=== PATIENT | female | born 1945 | race Caucasian/White ===

== ENCOUNTER 2017-03-31 13:24 | Inpatient (IN) | payer OTHER ==
--- NOTE | ~2017-03-31 | CN ---
Consultation Report [facility] [address] [place]. [address] NAME: GINNY SALINAS : 45 STATUS : ADM IN [facility]#: [id number] AGE: 71 ADM/REG DATE : 03/31/17 MR#: [id number] REPORT SERV DATE: 04/03/17 DICTATED BY: JENNY DEWITT DATE: 04/03/17 REPORT STATUS : Draft TRANSCRIBED BY: MODL DATE: 04/03/17 INFECTIOUS DISEASE CONSULT DATE OF CONSULTATION: 04/01/2017 REASON FOR REFERRAL: Evaluation and treatment of unexplained fever. HISTORY OF PRESENT ILLNESS: The patient is a 71-year-old female with a past medical history of hypertension, degenerative joint disease, diabetes, osteoarthritis, was generally doing well until about a week prior to her 03/31/2017 admission when she developed a headache described in the occiput of her head that began to radiate down into her neck and then her upper back and shoulders. She began to feel worse and worse, but had fevers and shaking chills and soaking sweats. She came in on 03/31/2017, was not on antibiotics at that time. Blood cultures were taken, and she was started empirically on vancomycin and Zosyn. A lumbar puncture was performed because of the location of the pain and showed 4 white cells and a protein of 48, but otherwise normal and cultures of that were negative. Her blood cultures remained negative. Imaging of her lungs has shown evidence of pneumonia, but she had no cough or shortness of breath. No dysuria. No nausea, vomiting, diarrhea, or abdominal cramping. No skin lesions or rashes. She lives in the [facility], has not traveled, works out in the garden, but has not in any sort of brush or trees or forests and has seen no tics, has no animals, essentially no unusual environmental exposures. She has family members who do not live with her but are in the vicinity, and none of them have been ill with any sort of similar symptoms. PAST MEDICAL HISTORY: Otherwise, unremarkable. MEDICATIONS: As mentioned, started on vancomycin and Zosyn. ALLERGIES: NO KNOWN ANTIMICROBIAL ALLERGIES. SOCIAL HISTORY: She is . Nonsmoker. No history of alcohol or substance abuse. FAMILY HISTORY: Noncontributory. PHYSICAL EXAMINATION: GENERAL: Ill-appearing elderly female, in no severe distress. Alert and oriented x3. VITAL SIGNS: Temperature had been as high as 102, but was 99.9 at the time of the consult. HEENT: Her sclerae are clear. She has no oropharyngeal lesions. NECK: Somewhat stiff. There is some tenderness posteriorly, but nothing on the skin. LUNGS: Clear. HEART: Regular rate and rhythm. ABDOMEN: Soft, nontender. Positive bowel sounds. EXTREMITIES: Without clubbing, cyanosis, or edema. No swollen, red, or hot joints. No Consultation Report [place] [id number] [facility] [place]. [address] NAME: GINNY SALINAS : 45 STATUS : ADM IN [facility]#: [id number] AGE: 71 ADM/REG DATE : 03/31/17 MR#: [id number] REPORT SERV DATE: 04/03/17 DICTATED BY: JENNY DEWITT DATE: 04/03/17 REPORT STATUS : Draft TRANSCRIBED BY: TERRY DATE: 04/03/17 skin lesions or rashes. LABORATORY DATA: White blood cell count 9.6, hematocrit 29.9, platelets 207, unremarkable differential. Sedimentation rate 26. BUN and creatinine 22 and 1.08. Liver function tests within normal limits. Urinalysis unremarkable. IMPRESSION: Febrile illness with a negative initial workup including a lumbar puncture. One concern would be osteomyelitis or diskitis of the cervical or thoracic spine. Other than that, her symptoms now reported do not strongly suggest any particular diagnosis. A tickborne illness certainly could cause this, but she has passed the point she should have had a rash with [place] spotted fever, and she has none of the characteristic lab abnormalities one would see with Ehrlichiosis. I do not feel there is Lyme disease in this area so, I would not consider that in the differential. RECOMMENDATIONS: 1. She seemed to be somewhat improved in the first 36 hours on empiric antibiotics, so we will continue those. 2. Imaging of her neck and back with MRI. 3. We will follow the patient closely with you. I appreciate very much your consulting on this patient. TONY Jenny Dewitt M.D. / [id number] CC: Sherlyn Corado MD
--- NOTE | ~2017-03-31 | CN ---
Consultation Report [facility] [address] [place]. [address] NAME: GINNY SALINAS : 45 STATUS : ADM IN PAT#: [id number] AGE: 71 ADM/REG DATE : 03/31/17 MR#: [id number] REPORT SERV DATE: 04/01/17 DICTATED BY: DATE: REPORT STATUS : Draft TRANSCRIBED BY: MODL DATE: 04/01/17 NEUROLOGY CONSULTATION DATE OF CONSULTATION: 04/01/2017 REASON FOR CONSULT: Headache, neck pain, and fever. HISTORY OF PRESENT ILLNESS: This is a 71-year-old female who presented to [facility] on 03/31/2017 secondary to persistent fever as well as headache and pain. The patient reports the pain was mostly localized in the base of the skull and cervical area with the pain reported to be constant. No aggravating factor was otherwise noted, relieved by morphine. The patient otherwise denies any focal weakness and denies any focal numbness. Denies gait abnormalities, and denies any bowel or bladder difficulties. The patient's symptoms have been ongoing for a week without significant improvement, appear to be mildly worse over the past two to three days, where the patient and family reports the patient has had a fever for the past two days, especially also noted to be dizzy and was lightheaded. The patient in addition also reports for the past two to three days, the patient has had dizziness described as lightheadedness when standing up, where the patient denies any previous similar symptoms. The patient denies any diarrhea, nausea, or vomiting, and denies any chest pain or shortness of breath prior to coming to the hospital. Denies any rash prior to hospital admission. Denies any sick contacts and denies any recent travel, and denies any insect or mosquito bite prior to hospital admission. The patient denies similar symptoms in the past. No loss of consciousness episode was otherwise noted. No dysarthria or confusion was reported by family members or the patient. The patient denies any recent changes in medications at the time of evaluation. PAST MEDICAL HISTORY: Significant for hypertension, degenerative joint disease, osteoarthritis, and type 2 diabetes. SOCIAL HISTORY: Denies tobacco, alcohol, or recreational drug usage. ALLERGIES: THE PATIENT DENIES ANY KNOWN DRUG ALLERGIES. FAMILY HISTORY: Significant for diabetes and osteoarthritis. REVIEW OF SYSTEMS: Negative, except for those mentioned in the HPI. MEDICATIONS: The patient's home medications consist of amlodipine, aspirin, atenolol, [place], Advil, and metformin. PHYSICAL EXAMINATION: VITAL SIGNS: Overnight, the patient was noted to have vital signs with T-max of 97.6, heart rate of 58 to 78, respirations of 16 to 20, and blood pressure of 97 to 112 over 49 to 53. Consultation Report [address] [place]. [address] NAME: GINNY SALINAS : 45 STATUS : ADM IN [facility]#: [id number] AGE: 71 ADM/REG DATE : 03/31/17 MR#: [id number] REPORT SERV DATE: 04/01/17 DICTATED BY: DATE: REPORT STATUS : Draft TRANSCRIBED BY: TERRY DATE: 04/01/17 Of note, the patient was noted to have a fever upon ER presentation with the patient's T-max of 102.3. GENERAL: The patient was well developed, well nourished, in no acute distress. CARDIOVASCULAR: Regular rate and rhythm. No carotid bruits were otherwise auscultated. PULMONARY: Clear to auscultation bilaterally. NEUROLOGICAL: Generally, the patient is alert and oriented to person, place, year, and month. Follows simple and two-step commands. No dysarthria. No aphasia. Intact registration and recall. Cranial nerves 2 through 12. Pupils equal, round, and reactive to light. Extraocular eye movement was noted to be intact with intact peripheral vision. Symmetrical facial expression and sensation. Midline tongue. Normal palatal movement. Mild decreased hearing in bilateral ears. 5/5 bilateral upper and lower extremity strength with normal muscle, bulk, and tone. Symmetrical sensation bilaterally. Normal finger-to- nose examination without ataxia. The patient demonstrated normal stable gait and stable station. Deep tendon reflex was otherwise diminished throughout. No Nishant sign in bilateral upper extremities at the time of evaluation. LABORATORY STUDIES: Demonstrate sodium 132, potassium 3.2, chloride of 94, bicarb of 29, BUN of 22, creatinine 1.08, glucose of 229. Calcium of 8.2, magnesium 2.2, with the patient noted to have procalcitonin level of 0.83, vitamin B12 level of 357, folate level was 36.8. C-reactive protein of 140. Hemoglobin A1c of 7.4, ammonia level 34. White blood cell count of 9.6, hemoglobin of 9.0, hematocrit of 29.9, and platelet count of 207. Sedimentation rate of 26. The patient was noted to have CSF white blood cell count of 4, rbc of 68, with a glucose of 121, protein of 48.9. CT scan of the brain demonstrated no acute process. The urinalysis demonstrated negative leukocyte esterase and negative nitrite. IMPRESSION: 1. Cervical pain. 2. Fever, unclear etiology for the patient's fever. The patient, in addition, was noted to be hypotensive this morning with symptoms concerning for static hypotension, concern for possible infection versus abscess versus systemic inflammatory response syndrome. No clear abnormality was noted on cerebrospinal fluid, but will add HSV-PCR, cryptococcal antigen, and fungal studies to cerebrospinal fluid evaluations. MRI of the brain, C-spine, as well as T-spine is currently pending. We will also check echocardiogram. We will currently use symptomatic therapy for pain with analgesia as well as Depakote. We will also obtain Infectious Disease consult. RECOMMENDATION: 1. CSF for HSV-PCR, cryptococcal antigen, fungal stain, and fungal culture. 2. Sedimentation rate, CRP, procalcitonin level, RPR, as well as HIV with morning labs. 3. MRI of her brain, C-spine, T-spine, which is pending. 4. Infectious Disease consult. 5. Echocardiogram, which is pending. Consultation Report [address] [place]. [address] NAME: GINNY SALINAS : 45 STATUS : ADM IN [facility]#: [id number] AGE: 71 ADM/REG DATE : 03/31/17 MR#: [id number] REPORT SERV DATE: 04/01/17 DICTATED BY: DATE: REPORT STATUS : Draft TRANSCRIBED BY: MODL DATE: 04/01/17 6. Blood cultures pending. [facility]/MODL Martir Tavarez MD / [id number] CC: Michael Hunt M.D.
--- NOTE | ~2017-03-31 | DS ---
Discharge Summary [place] [address] [place]. [address] NAME: GINNY SALINAS : 45 STATUS : DIS IN PAT#: [id number] AGE: 71 ADM/REG DATE : 03/31/17 MR#: [id number] REPORT SERV DATE: 04/05/17 DICTATED BY: SHERLYN BARLOW DATE: 04/04/17 REPORT STATUS : Draft TRANSCRIBED BY: TERRY DATE: 04/04/17 ADMISSION DATE: 03/31/2017 DISCHARGE DATE: 04/04/2017 CONSULTATIONS: 1. Infectious Disease, Dr. Martin Chung. 2. Neurology, Dr. Tavarez. INVASIVE PROCEDURES: Lumbar puncture for CSF analysis. DISCHARGE DIAGNOSES: 1. Sepsis with unknown source of infection. 2. Fever of unknown etiology. 3. Iron deficiency anemia. 4. Elevated troponin I secondary to demand ischemia. 5. Diabetes mellitus type 2, non-insulin dependent. 6. Restless legs syndrome. 7. History of hypertension. 8. History of degenerative joint disease. DISCHARGE CONDITION: Stable. HISTORY OF PRESENT ILLNESS: For detailed HPI, please make reference to Dr. Karolina Santiago's dictation on 04/01/2017. In brief, this is a 71-year-old female with medical history of hypertension, diabetes mellitus type 2, and degenerative joint disease, who presented to the emergency room department with complaints of fever, headache, neck pain, back pain, myalgia, arthralgia, and generalized weakness of a week duration. In the ER, was found to have a temperature of 102.3, blood pressure 144/66, heart rate of 97 beats per minute, respiratory rate of 16 cycles per minute, saturating 100% on room air. LABORATORY DATA: Significant for procalcitonin 0.83, sodium of 125, potassium of 2.9, chloride 94, bicarb 29, BUN 22, creatinine 1.08, glucose of 229, troponin 0.24, lactate 2.5. An assessment of sepsis syndrome of unknown source was made in the ER. The patient was admitted to the Hospitalist Service for further evaluation. Sepsis of unknown source. The patient met sepsis criteria given fever and tachycardia. At the time of admission, the initial source of infection was thought to be possible meningitis; however, the patient had a lumbar puncture that showed CSF analysis that was negative with both Gram staining and culture. Also noted, white blood cell count was full. Meningitis was ruled out in this patient prior to discharge. Also, urinalysis showed rare bacteria. Urine culture was also negative as well as blood cultures. MRI of the brain shows no evidence of meningoencephalitis. Echocardiogram showed no evidence of infective endocarditis. The patient had broad-spectrum antibiotics per ID recommendations. This was gradually deescalated as the patient's fever continued to improve. At the time of discharge, the patient's fever had completely resolved. Per ID, IV antibiotic was transitioned to p.o. levofloxacin, and the patient was advised to follow up with Infectious Disease within one Discharge Summary [address] [place]. [address] NAME: GINNY SALINAS : 45 STATUS : DIS IN PAT#: [id number] AGE: 71 ADM/REG DATE : 03/31/17 MR#: [id number] REPORT SERV DATE: 04/05/17 DICTATED BY: SHERLYN BARLOW DATE: 04/04/17 REPORT STATUS : Draft TRANSCRIBED BY: TERRY DATE: 04/04/17 week of discharge. At the time of discharge, the patient had no further episodes of headaches, neck pain, or back pain. Iron deficiency anemia. The patient's hemoglobin was noted to range from 8 to 9 throughout the course of this admission. No evidence of acute blood loss noted. I initiated a discussion of possible colonoscopy with the patient during this admission, but she declined. She said she has never had a colonoscopy in her life and will not want to undergo any colonoscopy at this age. The patient's son was at the bedside during the time of this discussion. It was concluded that the patient will follow up with her primary care physician. Also, the patient will be discharged on iron supplement. Elevated troponin. The patient had no evidence of chest pain. No acute ST-segment elevation during the course of this admission. The patient's troponin was monitored and remained stable throughout the course of admission. Etiology of elevated troponin likely due to demand ischemia. Diabetes mellitus. The patient's blood glucose was tightly controlled with subcu insulin during the course of this admission. At the time of discharge, the patient was advised to resume metformin at home. Restless legs syndrome. The patient had a trial of dopamine agonist prior to admission, reported was noted to be ineffective. Likely etiology of restless legs syndrome is due to the iron deficiency. The patient was started on iron supplement. The patient was prescribed Klonopin for symptomatic relief. The patient was advised to continue to follow up with primary care physician. DISCHARGE MEDICATIONS: 1. Levofloxacin 750 mg p.o. daily. 2. Klonopin 1 mg p.o. q.h.s. 3. Iron 325 mg p.o. daily. 4. Aspirin 81 mg p.o. daily. 5. Atenolol 25 mg p.o. q.h.s. 6. Metformin 1000 mg b.i.d. 7. Chlorthalidone 25 mg p.o. daily. 8. Lotrel 5/20 p.o. daily. DISCHARGE CONDITION: Stable. DISCHARGE ACTIVITIES: As tolerated. DISCHARGE FOLLOWUP: 1. Follow up with Infectious Disease as an outpatient within one week of discharge. 2. Follow up with primary care physician within one week of discharge. Greater than 40 minutes was used to prepare this patient's discharge, reconcile medication, advise the patient on discharge plans and followup. Discharge Summary [address] [address] NAME: GNINY SALINAS : 45 STATUS : DIS IN PAT#: [id number] AGE: 71 ADM/REG DATE : 03/31/17 MR#: [id number] REPORT SERV DATE: 04/05/17 DICTATED BY: SHERLYN BARLOW DATE: 04/04/17 REPORT STATUS : Draft TRANSCRIBED BY: TERRY DATE: 04/04/17 DICTATED BY: MD TORI Dobson/TERRY Sherlyn Barlow MD / [id number] CC: Sherlyn Barlow MD
--- NOTE | ~2017-03-31 | HP ---
History And Physical [facility] [address] [facility] [place]. [address] NAME: GINNY SALINAS : 45 STATUS : ADM IN [facility]#: [id number] AGE: 71 ADM/REG DATE : 03/31/17 MR#: [id number] REPORT SERV DATE: 04/01/17 DICTATED BY: KAROLINA LORA DATE: 03/31/17 REPORT STATUS : Draft TRANSCRIBED BY: TERRY DATE: 03/31/17 DATE OF ADMISSION: 03/31/2017 CHIEF COMPLAINT: Fever, headache, neck pain, back pain, myalgia, arthralgia, weakness for about one week. HISTORY: This is a very pleasant 71 years old female with no significant past medical history except for hypertension. She has a history of degenerative joint disease, osteoarthritis, diabetes type 2, noninsulin dependent. She is a patient of Dr. Colin in [place] that she has been presenting today to [facility] Emergency Room with about one week history of neck pain, back pain as well as headaches, fevers, intermittent episodes of nausea and vomiting, weakness, decreased appetite, and not feeling well. The patient has been getting progressively worse, become much more unsteady and due to the persistence of the symptoms including the fever, she has decided to present to emergency room for further evaluation and treatment. The patient has been seen in the emergency room. She had CT of the brain as well as of the cervical spine which has been unremarkable. CT of the C-spine has shown degenerative changes with no abnormalities that could be appreciated, just right thyroid nodule. She also underwent a lumbar puncture and after initial evaluation, Hospitalist Service has been asked for admission, further evaluation, and treatment. PAST MEDICAL HISTORY: Significant for hypertension, degenerative joint disease, osteoarthritis, diabetes type 2, non-insulin dependent. PAST SURGICAL HISTORY: Include cholecystectomy and hysterectomy. SOCIAL HISTORY: The patient is denying tobacco, alcohol, or IV drugs. ALLERGIES: SHE DOES NOT HAVE ANY DRUG ALLERGIES. FAMILY HISTORY: Significant for diabetes and osteoarthritis. MEDICATIONS: At home include Lotrel, aspirin, atenolol, Oxford-Tone, Advil, and Glucophage. REVIEW OF SYSTEMS: A 14-point review of systems has been obtained and pertinent positive has been listed into the history of present illness. Otherwise, negative except those underlying above. OBJECTIVE: VITAL SIGNS: The patient T-max is 102.3, blood pressure 144/66, heart rate 97, respiratory rate 15,saturating about 100% on room air. GENERAL: The patient is a very pleasant, well-developed, well-nourished female, in no acute distress. She is alert and oriented x3. She is nonfocal. She follows all her commands appropriately. HEENT: Shows pupils equal, round, reactive to light. Extraocular movements intact. NECK: No JVD. No lymphadenopathy. No thyromegaly appreciated. CHEST: Eval shows bilateral air entry. Clear anteroposterior. No wheezes, crackles, or rhonchi appreciated. History And Physical [address] [address] NAME: GINNY SALINAS : 45 STATUS : ADM IN [facility]#: [id number] AGE: 71 ADM/REG DATE : 03/31/17 MR#: [id number] REPORT SERV DATE: 04/01/17 DICTATED BY: KAROLINA LORA DATE: 03/31/17 REPORT STATUS : Draft TRANSCRIBED BY: TERRY DATE: 03/31/17 CARDIOVASCULAR: She is regular rate and rhythm. S1, S2 positive. No S3, no S4. No murmurs, rubs, or gallops appreciated. ABDOMEN: Soft with positive bowel sounds. Nontender. No guarding. No rebound. EXTREMITIES: No clubbing, cyanosis, or edema. NEUROLOGIC: The patient is alert and oriented x3. She is nonfocal. She follows all her commands appropriately. LABORATORY DATA: Labs from today include procalcitonin 0.83, sodium 125, potassium 2.9, chloride 94, CO2 of 29, BUN 22, creatinine 1.08, glucose is 229, mag is 1.3. Her total bilirubin is 1, alkaline phosphatase 59, ALT 27, AST 26, lipase 101, troponin I is 0.24, lactate 2.5. CSF fluid shows 4 white cells, 68 red cells, 67 monocytes, glucose 121, protein 48.9. Cultures are pending. White count 9.6, hemoglobin 9, hematocrit 29.9, platelets are 207. Her INR is 1.2. Her UA has been showing rare bacteria. Blood cultures are pending. CSF cultures currently are pending. The Gram stain currently negative. Her chest x-ray portable, performed in the emergency room shows bibasilar atelectasis, secondary to low lung volume but no other abnormalities that could be identified. Brain CT without contrast shows no acute intracranial abnormality identified, mild cortical volume loss, and findings compatible with mild chronic deep white matter ischemic changes. The spine lumbar shows degenerative changes and right thyroid lobe nodule measuring 7 mm. ASSESSMENT: This is a very pleasant 71 years old female with: 1. Fever and sepsis unclear etiology. 2. Headaches, neck pain, and back pain. 3. Mild acute kidney injury. 4. History of hypertension. 5. Hypokalemia and hypomagnesemia. 6. Degenerative joint disease, osteoarthritis. 7. Positive troponin likely secondary to demand. PLAN: 1. The patient is going to be admitted to Hospitalist Service. We are going to place her on broad-spectrum antibiotics. We are going to get a CAT scan, vigorous IV hydration, panculture her. Check a CT of the chest, abdomen, and pelvis in the morning. Check an MRI of the brain, C-spine and thoracic spine, as well. In the morning, provide supportive care of the patient nausea and pain control. Consult Neurology for further recommendation as well. 2. Headaches, neck and back pain. We are going to provide supportive care. We will order an MRI of the brain in the morning, of the C-spine and thoracic spine, and consult the Neurology. 3. Positive troponin I, likely secondary to demand. We will rule her for [place] by serial cardiac enzymes, serial EKG. Continue her Tenormin and place her on an aspirin. Check on 2D echo as well. 4. Diabetes type 2, noninsulin dependent. Place her on Levemir. Diabetic diet. Accu- History And Physical [address] [address] NAME: GINNY SALINAS : 45 STATUS : ADM IN [facility]#: [id number] AGE: 71 ADM/REG DATE : 03/31/17 MR#: [id number] REPORT SERV DATE: 04/01/17 DICTATED BY: KAROLINA LORA DATE: 03/31/17 REPORT STATUS : Draft TRANSCRIBED BY: MODL DATE: 03/31/17 Cheks before meals and at bedtime, sliding scale insulin subcutaneously level 2. 5. Hypokalemia and hypomagnesemia. Replace electrolytes as per protocol. We are going to provide reasonable pain, nausea control as well as GI and DVT prophylaxes with SCDs. That has been discussed extensively with the patient as well as the patient's family. All the questions have been answered in full. Further workup and recommendation pending above. It is worthwhile to note that the patient is going to be followed up by Hospitalist Service. NAEL/TERRY Karolina Lora M.D. / [id number] CC: Michael Hunt M.D.
[2017-03-31 16:01] LABS: BASOPHILS 0.1 %; BASOPHILS ABSOLUTE 0.01 10/3/uL (0.0-0.16); EOSINOPHILS 0 %; ER CBC TAT 0 Hrs 13 Mins; HEMATOCRIT 29.9 % (36.0-48.0); IMMATURE GRANULOCYTES 0.3 %; IMMATURE GRANULOCYTES ABSOLUTE 0.03 10/3/uL (0.0-0.11); LYMPHOCYTES 5.4 %; LYMPHOCYTES ABSOLUTE 0.52 10/3/uL (0.67-4.30); MEAN CORPUS HGB CONC 30.1 g/dL (32.0-36.0); MEAN CORPUSCULAR VOLUME 69.7 fL (80-100); MEAN PLATELET VOLUME 9.6 fL (9.2-13.0); MONOCYTES 5.1 %; MONOCYTES ABSOLUTE 0.49 10/3/uL (0.21-1.20); NEUTROPHILS 89.1 %; NEUTROPHILS ABSOLUTE 8.57 10/3/uL (2.02-8.40); PLATELET COUNT 207 10/3/uL (150-400); RBC DISTRIBUTION WIDTH 17.2 % (12.0-16.0); RED CELL COUNT 4.29 10/6/uL (4.0-5.6); WHITE BLOOD CELLS 9.6 10/3/uL (4.5-10.5)
[2017-03-31 16:02] LABS: MANUAL DIFF NO %
[2017-03-31 16:04] LABS: INTERNATIONAL NORMAL RATI 1.2 UNITS (-); PROTIME (NOT ORD) 15.5 SEC (12.0-14.5)
[2017-03-31 16:14] LABS: ALBUMIN 3.4 G/DL (3.5-5.0); ALKALINE PHOSPHATASE 59 U/L (45-117); BUN (BLOOD UREA NITROGEN) 22 MG/DL (6-23); CALCIUM, SERUM 8.2 MG/DL (8.5-10.4); CHEST PAIN PROFILE TAT 0 Hrs 26 Mins; CHLORIDE, SERUM 94 MMOL/L (96-112); CO2 (CARBON DIOXIDE) 29 MMOL/L (24-34); CREATININE 1.08 MG/DL (0.55-1.02); DIRECT BILIRUBIN 0.3 MG/DL (0.0-0.4); GFR AFRICAN AMERICAN 60 ML/MIN (>=60); GFR NON AFRICAN AMERICAN 52 ML/MIN (>=60); GLUCOSE, SERUM 229 MG/DL (60-99); INDIRECT BILIRUBIN(NOT ORDER) 0.7 MG/DL (0.1-0.9); POTASSIUM, SERUM 2.9 MMOL/L (3.5-5.3); SGOT(AST) 26 U/L (5-40); SGPT(ALT) 27 U/L (5-65); SODIUM, SERUM 132 MMOL/L (135-148); TOTAL PROTEIN 7.3 G/DL (6.0-8.5); TROPONIN I 0.24 NG/ML (<0.05)
[2017-03-31 16:27] LABS: ANISOCYTOSIS 1+ (5-10/OIF) (0-5/OIF); ELLIPTOCYTES 1+ (3-10/OIF) (0-2/OIF); PLATELET ESTIMATE ADQ (ADEQUATE); TEARDROP SHAPED RBCS OCC (0-2/OIF)
[2017-03-31 16:37] LABS: PROCALCITONIN 0.83 ng/mL (<0.5)
[2017-03-31 16:54] LABS: WBC (NOT ORDERED) (RFLEX) 0 (0-5)
[2017-03-31 17:02] LABS: ASCORBIC ACID (UR NOT ORDER) NEG (NEG); BILIRUBIN, URINE NEGATIVE (NEG); ER URINALYSIS TAT 0 Hrs 10 Mins; KETONE, URINE 20 MG/DL (NEG); LEUKOCYTE ESTERASE(NOT OR NEG (NEG); NITRITE (URINE) NEG (NEG)
[2017-03-31] MEDS ORDERED: GLUCOPHAGE1000 MG PO (17:47)
[2017-03-31] MEDS ORDERED: ATEN25 PO (17:48)
[2017-03-31] MEDS ORDERED: HYGROTON 25 MG25 MG PO (17:48)
[2017-03-31] MEDS ORDERED: ASAB PO (17:48)
[2017-03-31] MEDS ORDERED: LOTREL1 CA2 PO (17:48)
[2017-03-31] MEDS ORDERED: ADVIL PO (17:48)
[2017-03-31 18:11] LABS: GLUCOSE CSF 121 MG/DL (45-70); TOTAL PROTEIN, CSF 48.9 MG/DL (15-45)
[2017-03-31 18:20] LABS: CSF BASO 0 % (NO REF RANGE); CSF EOS 0 % (0-1); CSF LYMPH (NOT ORD) 40 % (28-96); CSF MONO 60 % (16-56); CSF SEGS (NOT ORD) 0 % (0-7)
[2017-03-31 18:21] LABS: CSF APPEARANCE (NOT ORD) CLEAR (CLEAR); CSF COLOR (NOT ORD) COLORLESS (COLORLESS); CSF RBC (NOT ORD) 2 MM3 (NO REFERENCE); CSF WBC (NOT ORD) 4 /uL (0-10); CSF XANTHROCHROMIA NEG (NEG)
[2017-03-31 18:25] LABS: CSF BASO 0 % (NO REF RANGE); CSF EOS 0 % (0-1); CSF LYMPH (NOT ORD) 33 % (28-96); CSF MONO 67 % (16-56); CSF SEGS (NOT ORD) 0 % (0-7); CSF WBC (NOT ORD) 4 /uL (0-10)
[2017-03-31 18:26] LABS: CSF APPEARANCE (NOT ORD) CLEAR (CLEAR); CSF COLOR (NOT ORD) COLORLESS (COLORLESS); CSF RBC (NOT ORD) 68 MM3 (NO REFERENCE); CSF XANTHROCHROMIA NEG (NEG)
[2017-03-31 22:40] LABS: CPK 221 U/L (0-200)
[2017-03-31 22:41] LABS: CK-MB 1.4 NG/ML; TROPONIN I 0.21 NG/ML (<0.05)
[2017-03-31 23:16] LABS: CPK 212 U/L (0-200); FERRITIN 38 NG/ML (8-252); FREE T4 1.46 NG/DL (0.76-1.46); IRON BINDING CAPACITY 390 MCG/DL (225-410); IRON, SERUM 22 MCG/DL (35-150); PHOSPHORUS, SERUM 3.6 MG/DL (2.5-4.5)
[2017-03-31 23:17] LABS: ACETAMINOPHEN LEVEL (TYLENOL) < 2.0 MCG/ML (10.0-20.0); ALCOHOL < 10 MG/DL (0); CK-MB 0.9 NG/ML; FOLATE 36.8 NG/ML (>5.2); SALICYLATE < 1.7 MG/DL (-)
[2017-04-01 00:44] LABS: POTASSIUM, SERUM 3.2 MMOL/L (3.5-5.3)
[2017-04-01 07:47] LABS: GLYCOHEMOGLOBIN (HbA1c) 7.4 % (4.7-6.1)
[2017-04-01 08:34] LABS: B NATRIURETIC PEPTIDE (BNP) 320.5 PG/ML (< 100.0)
[2017-04-01 10:17] LABS: CPK 222 U/L (0-200)
[2017-04-01 10:18] LABS: CK-MB 2.5 NG/ML
[2017-04-01 12:36] LABS: ASCORBIC ACID (UR NOT ORDER) NEG (NEG); BILIRUBIN, URINE NEGATIVE (NEG); KETONE, URINE NEGATIVE (NEG); LEUKOCYTE ESTERASE(NOT OR SMALL (NEG); WBC (NOT ORDERED) (RFLEX) 12 (0-5)
[2017-04-01 20:04] LABS: CK-MB 2.2 NG/ML; CPK 215 U/L (0-200); TROPONIN I 0.06 NG/ML (<0.05)
[2017-04-02 03:40] LABS: BASOPHILS 0.2 %; BASOPHILS ABSOLUTE 0.02 10/3/uL (0.0-0.16); EOSINOPHILS 0.4 %; EOSINOPHILS ABSOLUTE 0.04 10/3/uL (0.0-0.53); HEMOGLOBIN 7.9 g/dL (12.0-16.0); IMMATURE GRANULOCYTES 0.3 %; IMMATURE GRANULOCYTES ABSOLUTE 0.03 10/3/uL (0.0-0.11); LYMPHOCYTES 17.4 %; LYMPHOCYTES ABSOLUTE 1.73 10/3/uL (0.67-4.30); MEAN CORPUS HGB CONC 29.8 g/dL (32.0-36.0); MEAN CORPUSCULAR HEMOGLOB 21.5 pg (26.0-34.0); MEAN PLATELET VOLUME 9.4 fL (9.2-13.0); MONOCYTES 7.5 %; MONOCYTES ABSOLUTE 0.75 10/3/uL (0.21-1.20); NEUTROPHILS 74.2 %; NEUTROPHILS ABSOLUTE 7.37 10/3/uL (2.02-8.40); PLATELET COUNT 199 10/3/uL (150-400); RED CELL COUNT 3.68 10/6/uL (4.0-5.6); WHITE BLOOD CELLS 9.9 10/3/uL (4.5-10.5)
[2017-04-02 03:41] LABS: HEMATOCRIT 26.5 % (36.0-48.0); MANUAL DIFF NO %
[2017-04-02 03:53] LABS: BUN (BLOOD UREA NITROGEN) 20 MG/DL (6-23); CALCIUM, SERUM 7.5 MG/DL (8.5-10.4); CHLORIDE, SERUM 104 MMOL/L (96-112); CO2 (CARBON DIOXIDE) 24 MMOL/L (24-34); GFR AFRICAN AMERICAN 58 ML/MIN (>=60); GFR NON AFRICAN AMERICAN 50 ML/MIN (>=60); GLUCOSE, SERUM 298 MG/DL (60-99); POTASSIUM, SERUM 3.4 MMOL/L (3.5-5.3); RHEUMATOID FACTOR QUANT < 10 IU/ML (0-15); SODIUM, SERUM 136 MMOL/L (135-148)
[2017-04-02 04:11] LABS: PLATELET ESTIMATE ADQ (ADEQUATE)
[2017-04-02 04:12] LABS: ANISOCYTOSIS 1+ (5-10/OIF) (0-5/OIF); ELLIPTOCYTES 1+ (3-10/OIF) (0-2/OIF); POIKILOCYTOSIS 1+ (5-10/OIF) (0-5/OIF); TEARDROP SHAPED RBCS OCC (0-2/OIF)
[2017-04-02 04:47] LABS: PROCALCITONIN 0.97 ng/mL (<0.5)
[2017-04-02 06:24] LABS: SED RATE 27 MM/HR (0-20)
[2017-04-02 09:40] LABS: CYCLIC CITRULLINATED PEPTIDE <15.62 UNITS (<20)
[2017-04-02 12:10] LABS: ANA TITER <1:40 TITER
[2017-04-03 04:46] LABS: BASOPHILS 0.1 %; BASOPHILS ABSOLUTE 0.01 10/3/uL (0.0-0.16); EOSINOPHILS 3.5 %; EOSINOPHILS ABSOLUTE 0.27 10/3/uL (0.0-0.53); HEMATOCRIT 28.1 % (36.0-48.0); HEMOGLOBIN 8.2 g/dL (12.0-16.0); IMMATURE GRANULOCYTES 1.2 %; IMMATURE GRANULOCYTES ABSOLUTE 0.09 10/3/uL (0.0-0.11); LYMPHOCYTES 27.3 %; LYMPHOCYTES ABSOLUTE 2.11 10/3/uL (0.67-4.30); MEAN CORPUS HGB CONC 29.2 g/dL (32.0-36.0); MEAN CORPUSCULAR HEMOGLOB 20.9 pg (26.0-34.0); MEAN CORPUSCULAR VOLUME 71.5 fL (80-100); MEAN PLATELET VOLUME 10.8 fL (9.2-13.0); MONOCYTES 7.9 %; MONOCYTES ABSOLUTE 0.61 10/3/uL (0.21-1.20); NEUTROPHILS ABSOLUTE 4.63 10/3/uL (2.02-8.40); PLATELET COUNT 163 10/3/uL (150-400); RBC DISTRIBUTION WIDTH 18.1 % (12.0-16.0); RED CELL COUNT 3.93 10/6/uL (4.0-5.6); WHITE BLOOD CELLS 7.7 10/3/uL (4.5-10.5)
[2017-04-03 04:48] LABS: MANUAL DIFF NO %
[2017-04-03 05:22] LABS: PLATELET ESTIMATE ADQ (ADEQUATE)
[2017-04-03 05:23] LABS: ANISOCYTOSIS 1+ (5-10/OIF) (0-5/OIF); POLYCHROMASIA 1+ (2-5/OIF) (0-1/OIF); TEARDROP SHAPED RBCS OCC (0-2/OIF)
[2017-04-03 05:28] LABS: % IRON SAT 5 % (20-50); BUN (BLOOD UREA NITROGEN) 18 MG/DL (6-23); CALCIUM, SERUM 8.3 MG/DL (8.5-10.4); CHLORIDE, SERUM 103 MMOL/L (96-112); CO2 (CARBON DIOXIDE) 24 MMOL/L (24-34); CREATININE 0.91 MG/DL (0.55-1.02); FERRITIN 46 NG/ML (8-252); GFR AFRICAN AMERICAN 74 ML/MIN (>=60); GFR NON AFRICAN AMERICAN 63 ML/MIN (>=60); IRON BINDING CAPACITY 314 MCG/DL (225-410); IRON, SERUM 17 MCG/DL (35-150); POTASSIUM, SERUM 3.6 MMOL/L (3.5-5.3); SODIUM, SERUM 137 MMOL/L (135-148); VANCOMYCIN TROUGH 8.3 MCG/ML (10.0-20.0)
[2017-04-03 05:32] LABS: FOLATE 36.2 NG/ML (>5.2); GLUCOSE, SERUM 177 MG/DL (60-99)
[2017-04-04 07:25] LABS: BASOPHILS 0.3 %; BASOPHILS ABSOLUTE 0.02 10/3/uL (0.0-0.16); EOSINOPHILS 4.9 %; EOSINOPHILS ABSOLUTE 0.29 10/3/uL (0.0-0.53); HEMATOCRIT 25.6 % (36.0-48.0); HEMOGLOBIN 7.6 g/dL (12.0-16.0); IMMATURE GRANULOCYTES 0.5 %; IMMATURE GRANULOCYTES ABSOLUTE 0.03 10/3/uL (0.0-0.11); LYMPHOCYTES 30.5 %; MEAN CORPUS HGB CONC 29.7 g/dL (32.0-36.0); MEAN CORPUSCULAR HEMOGLOB 21.3 pg (26.0-34.0); MEAN CORPUSCULAR VOLUME 71.7 fL (80-100); MEAN PLATELET VOLUME 9.4 fL (9.2-13.0); MONOCYTES 8.8 %; MONOCYTES ABSOLUTE 0.52 10/3/uL (0.21-1.20); NEUTROPHILS ABSOLUTE 3.25 10/3/uL (2.02-8.40); PLATELET COUNT 198 10/3/uL (150-400); RED CELL COUNT 3.57 10/6/uL (4.0-5.6); WHITE BLOOD CELLS 5.9 10/3/uL (4.5-10.5)
[2017-04-04 07:28] LABS: MANUAL DIFF NO %
[2017-04-04 07:40] LABS: CALCIUM, SERUM 7.9 MG/DL (8.5-10.4); CHLORIDE, SERUM 105 MMOL/L (96-112); CO2 (CARBON DIOXIDE) 27 MMOL/L (24-34); CREATININE 0.75 MG/DL (0.55-1.02); GFR AFRICAN AMERICAN 93 ML/MIN (>=60); GFR NON AFRICAN AMERICAN 80 ML/MIN (>=60); GLUCOSE, SERUM 149 MG/DL (60-99); PHOSPHORUS, SERUM 2.7 MG/DL (2.5-4.5); POTASSIUM, SERUM 3.5 MMOL/L (3.5-5.3); SODIUM, SERUM 140 MMOL/L (135-148)
[2017-04-04 07:41] LABS: BUN (BLOOD UREA NITROGEN) 12 MG/DL (6-23)
[2017-04-04 08:27] LABS: ANISOCYTOSIS 1+ (5-10/OIF) (0-5/OIF); HELMET CELLS OCC (0-2/OIF); PLATELET ESTIMATE ADQ (ADEQUATE); POLYCHROMASIA 1+ (2-5/OIF) (0-1/OIF); TEARDROP SHAPED RBCS OCC (0-2/OIF)
[2017-04-04 08:28] LABS: ELLIPTOCYTES 1+ (3-10/OIF) (0-2/OIF); MACROCYTES 1+ (5-10/OIF) (0-5/OIF); TARGET CELLS OCC (1-2/OIF) (0-1/OIF)
[2017-04-04] MEDS ORDERED: FERROUS SULF325 M1 PO (16:06)
[2017-04-04] MEDS ORDERED: FOLIC PO (16:06)
[2017-04-04] MEDS ORDERED: KLONO1 PO (16:12)
[2017-04-04] MEDS ORDERED: LEVAQUIN750 MG PO (16:14)
[2017-04-08 08:49] LABS: HSV DNA TYPE 1 NOT DETECTED; HSV DNA TYPE 2 NOT DETECTED
[2017-04-08 08:50] LABS: SOURCE CSF
== END 2017-04-04 20:22 | disposition home or self-care (01) | DRG 872 ==
LOC: ER 13:24 → 7NO 19:48
PROVIDERS: Emergency Medicine; Hospitalist; Internal Medicine; Psychiatry & Neurology Neurology
PROC: 009U3ZX Drainage of Spinal Canal, Percutaneous Approach, Diagnostic (ICD-10-PCS; principal; 2017-03-31)
DX: A41.9 Sepsis, unspecified organism (principal); N17.9 Acute kidney failure, unspecified; I24.8 Other forms of acute ischemic heart disease; E11.9 Type 2 diabetes mellitus without complications; E83.42 Hypomagnesemia; E87.6 Hypokalemia; D50.9 Iron deficiency anemia, unspecified; I10 Essential (primary) hypertension; M19.90 Unspecified osteoarthritis, unspecified site; G25.81 Restless legs syndrome; Z90.49 Acquired absence of other specified parts of digestive tract; Z90.710 Acquired absence of both cervix and uterus; Z83.3 Family history of diabetes mellitus; Z79.84 Long term (current) use of oral hypoglycemic drugs
CPT/HCPCS: 70450; 70551; 71010; 71250; 72125; 72141; 72146; 74176; 80048; 80076; 80202; 80307; 81001; 82140; 82150; 82272; 82550; 82553; 82607; 82728; 82746; 82945; 82962; 83036; 83540; 83550; 83605; 83615; 83690; 83735; 83880; 84100; 84132; 84145; 84157; 84439; 84443; 84484; 85025; 85610; 85652; 85730; 86039; 86140; 86200; 86225; 86431; 86592; 87040; 87070; 87086; 87102; 87205; 87327; 87389; 87493; 87493-59; 87529; 87529-59; 89051; 93005; 93306; 96374; 99285; A9270-GY; J2405; J2543; J3370; J3475